=== PATIENT | female | born 1980 | race Caucasian/White ===

== ENCOUNTER → 2019-07-15 15:53 | Outpatient (BNVA) | payer OTHER, SELFPAY | PROVIDERS: Family Provider Nurse Practitioner; PCP Nurse Practitioner Family; Visit Provider Nurse Practitioner Psychiatric/Mental Health | DX: F33.1 Major depressive disorder, recurrent, moderate (principal); F41.0 Panic disorder [episodic paroxysmal anxiety]; F43.12 Post-traumatic stress disorder, chronic; F41.1 Generalized anxiety disorder; F17.210 Nicotine dependence, cigarettes, uncomplicated | CPT/HCPCS: 99214 ==

== ENCOUNTER → 2019-10-26 11:36 | Outpatient (BNVA) | payer OTHER, SELFPAY | PROVIDERS: Family Provider Nurse Practitioner; PCP Nurse Practitioner Family; Visit Provider Nurse Practitioner | DX: F41.1 Generalized anxiety disorder (principal); E55.9 Vitamin D deficiency, unspecified; M25.521 Pain in right elbow; F43.12 Post-traumatic stress disorder, chronic | CPT/HCPCS: 73080; 80053; 82306; 85025; 85651 ==

== ENCOUNTER → 2020-06-29 09:36 | Outpatient (BNVA) | payer OTHER, SELFPAY | PROVIDERS: Family Provider Nurse Practitioner; PCP Nurse Practitioner Family; Visit Provider Nurse Practitioner Psychiatric/Mental Health | DX: F33.1 Major depressive disorder, recurrent, moderate (principal); F41.0 Panic disorder [episodic paroxysmal anxiety]; F43.12 Post-traumatic stress disorder, chronic; F17.210 Nicotine dependence, cigarettes, uncomplicated; F41.1 Generalized anxiety disorder | CPT/HCPCS: 99214 ==

== ENCOUNTER → 2020-07-20 16:06 | Outpatient (BNVA) | payer SELFPAY | PROVIDERS: Family Provider Nurse Practitioner; PCP Nurse Practitioner Family; Visit Provider Nurse Practitioner Family | DX: M25.532 Pain in left wrist (principal); X58.XXXA Exposure to other specified factors, initial encounter; Z68.42 Body mass index [BMI] 45.0-49.9, adult; F17.210 Nicotine dependence, cigarettes, uncomplicated | CPT/HCPCS: 73110 ==

== ENCOUNTER → 2020-08-17 08:59 | Outpatient (BNVA) | payer SELFPAY | PROVIDERS: Family Provider Nurse Practitioner; PCP Nurse Practitioner; Visit Provider Nurse Practitioner Psychiatric/Mental Health | DX: F33.1 Major depressive disorder, recurrent, moderate (principal); F41.0 Panic disorder [episodic paroxysmal anxiety]; F43.12 Post-traumatic stress disorder, chronic; F41.1 Generalized anxiety disorder; F17.210 Nicotine dependence, cigarettes, uncomplicated | CPT/HCPCS: 99214 ==

== ENCOUNTER → 2020-09-14 15:26 | Outpatient (BNVA) | payer SELFPAY | PROVIDERS: Family Provider Nurse Practitioner; PCP Nurse Practitioner; Visit Provider Nurse Practitioner Family | DX: M54.9 Dorsalgia, unspecified (principal); G89.29 Other chronic pain; I49.3 Ventricular premature depolarization; E55.9 Vitamin D deficiency, unspecified; G43.909 Migraine, unspecified, not intractable, without status migrainosus; N39.3 Stress incontinence (female) (male) | CPT/HCPCS: 80053; 80061; 82306; 84443; 85025 ==

== ENCOUNTER → 2020-09-19 08:47 | Outpatient (BNVA) | payer SELFPAY | PROVIDERS: Family Provider Nurse Practitioner; PCP Nurse Practitioner; Referring Provider Nurse Practitioner Family; Visit Provider Orthopaedic Surgery | DX: M54.9 Dorsalgia, unspecified (principal); G89.29 Other chronic pain; K80.20 Calculus of gallbladder without cholecystitis without obstruction | CPT/HCPCS: 72070; 72072 ==

== ENCOUNTER 2020-10-02 16:47 | Outpatient (CLI) | payer SELFPAY ==
--- NOTE | 2020-10-02 16:45 | MR_ITS ---
WS: [id number] MRI LUMBAR SPINE NONCONTRAST TECHNIQUE: Sagittal T1, T2 and STIR imaging. Axial T1 and T2 imaging. CLINICAL INFORMATION: M48.061 - Spinal stenosis, lumbar region without neurogenic claudication COMPARISON: MRI October 2013 FINDINGS: Mild lumbar curve. No acute compression. No high-grade central canal stenosis. Mild disc bulging L5-S 1. L1-L2: Normal. L2-L3: No significant disc bulging. Mild facet arthropathy. Spinal canal and foramen are patent. L3-L4: Minimal annular bulging. Mild left and no significant right foraminal narrowing. Mild facet ar thropathy. Spinal canal is patent. L4-L5: Shallow central disc bulging with mild central canal stenosis. Narrowing of the subarticular r ecess bilaterally left greater than right. Mild left greater than right foraminal narrowing. Mild fac et arthropathy. L5-S1: Mild annular bulging with a tiny shallow central protrusion. Slight effacement of ventral thec al sac. Spinal canal and foramen are patent. Mild/moderate facet arthropathy. Visualized pelvic bony structures: Normal. Paravertebral soft tissues: Normal. MR/MR lumbar spine wo con* [id number] IMPRESSION: 1. Mild lumbar curve. No acute compression. No high-grade central canal stenos is. 2. Mild central canal stenosis L4-5 progressed since 2013 with slight impingem ent on the left greater than right subarticular recess and traversing L5 nerve roots. Mild left L4-5 foraminal narrowing. 3. Tiny shallow central protrusion L5-S1 without significant nerve root imping ement. Spinal canal and foramen are patent at this level. 4. Left eccentric disc bulging L3-4 with mild left foraminal narrowing. 5. Mild to moderate facet arthropathy L4-L5 and L5-S1.
--- NOTE | 2020-10-02 17:30 | MR_ITS ---
WS: [id number] MRI THORACIC SPINE WITHOUT CONTRAST TECHNIQUE: Sagittal T1, T2 and STIR imaging. Axial T2 imaging. Noncontrast imaging obtained. CLINICAL INFORMATION: M54.9 - Dorsalgia, unspecified COMPARISON: CT FINDINGS: Mild thoracic curve. No acute compression. No high-grade central canal stenosis. Cord signal is casper l. Moderate facet arthropathy in the lower thoracic spine. Mild bony foraminal narrowing right T10-11, bilateral T11-12. No significant disc protrusions or extr usions. Mild central canal stenosis in the lower cervical spine at C5-C7 seen on the gun welder imaging. N ormal caliber thoracic aorta. MR/MR thoracic spin wo con* [id number] IMPRESSION: 1. Mild thoracic curve. No acute compression. No high-grade central canal sten osis. 2. Cord signal is normal. 3. Moderate facet arthropathy lower thoracic spine. 4. Mild bony foraminal narrowing right T10-11 and bilateral T11-T12. 5. Mild central canal stenosis in the cervical spine C5-C7 with mild cervical disc bulging.
== END 2020-10-02 16:48 | disposition home or self-care (01) ==
LOC: RADSHAW 16:52
PROVIDERS: Family Provider Nurse Practitioner; PCP Nurse Practitioner; Visit Provider Orthopaedic Surgery
DX: M48.061 Spinal stenosis, lumbar region without neurogenic claudication (principal); M47.814 Spondylosis without myelopathy or radiculopathy, thoracic region; M48.02 Spinal stenosis, cervical region; M50.222 Other cervical disc displacement at C5-C6 level; M51.27 Other intervertebral disc displacement, lumbosacral region; M47.816 Spondylosis without myelopathy or radiculopathy, lumbar region; M47.817 Spondylosis without myelopathy or radiculopathy, lumbosacral region
CPT/HCPCS: 72146; 72148

== ENCOUNTER → 2020-12-27 10:14 | Outpatient (BNVA) | payer OTHER, SELFPAY | PROVIDERS: Family Provider Nurse Practitioner; PCP Nurse Practitioner | DX: Z20.822 Contact with and (suspected) exposure to COVID-19 (principal) | CPT/HCPCS: 87635 ==

== ENCOUNTER → 2021-02-15 10:54 | Outpatient (BNVA) | payer SELFPAY | PROVIDERS: Family Provider Nurse Practitioner; PCP Nurse Practitioner; Visit Provider Nurse Practitioner Family | DX: I49.3 Ventricular premature depolarization (principal); G43.909 Migraine, unspecified, not intractable, without status migrainosus; M54.9 Dorsalgia, unspecified; G89.29 Other chronic pain; Z68.43 Body mass index [BMI] 50.0-59.9, adult; R73.9 Hyperglycemia, unspecified; E55.9 Vitamin D deficiency, unspecified; R21 Rash and other nonspecific skin eruption; Z71.3 Dietary counseling and surveillance; Z71.6 Tobacco abuse counseling; M48.062 Spinal stenosis, lumbar region with neurogenic claudication | CPT/HCPCS: 80053; 80061; 82306; 82607; 83036; 84443; 85025 ==

== ENCOUNTER → 2021-08-15 10:40 | Outpatient (BNVA) | payer SELFPAY | PROVIDERS: Family Provider Nurse Practitioner; PCP Nurse Practitioner Family; Visit Provider Nurse Practitioner Family | DX: R53.83 Other fatigue (principal); E55.9 Vitamin D deficiency, unspecified; R73.9 Hyperglycemia, unspecified; I49.3 Ventricular premature depolarization | CPT/HCPCS: 80053; 80061; 82306; 82607; 83036; 83735; 84443; 85025 ==

== ENCOUNTER 2021-09-26 10:06 | Emergency (ER) | payer SELFPAY ==
[2021-09-26 10:10] VITALS: BP 150/92; PULSE 64; RESP 18; TEMP 36.1; O2SAT 97; BMI 49.8
--- NOTE | 2021-09-26 10:30 | ED_ITS ---
HPI - Wound/Laceration General: Chief Complaint: Wound/Laceration Stated Complaint: left finger lac Time Seen by Provider: 09/26/21 10:07 Source: patient Mode of arrival: ambulatory Limitations: no limitations History of Present Illness: Patient is a 41-year-old female presents to ED today for evaluation of a left index finger laceration that she sustained just prior to arrival after she was using a knife to cut ham in the kitchen. Last tetanus is unknown. Bleeding controlled currently. Onset (ago): hour(s) Extremity Location: Left: hand (L index finger) Place: home Patient tetanus UTD: No Context: accidental Associated symptoms: Reports no associated symptoms Review of Systems Musc: Reports: extremity pain (L index finger); Denies: extremity swelling, joint pain, joint swelling or limited range of motion Skin/Breast: Reports: other (finger laceration) Neuro: Denies: numbness in extremities or sensory changes [facility] ED PFSH: Medical History Chronic post-traumatic stress disorder Generalized anxiety disorder Insomnia Major depressive disorder, recurrent episode, moderate with anxious distress Migraine Nicotine dependence, cigarettes, uncomplicated Panic disorder without agoraphobia PVC (premature ventricular contraction) Vitamin D deficiency Surgical History History of section History of tonsillectomy Family History Other Cancer Heart disease Denies family history of Bleeding disorder Social History Smoking and tobacco status: current every day smoker cigarettes Packs smoked per day: 1 Quit status (tobacco): considering quitting Second hand smoke exposure: Yes Smoking risk assessment/counseling performed?: Yes Alcohol intake: never Desire information about alcohol rehabilitation?: No Counseling given: No Desire information about substance/drug rehabilitation?: No Counseling given: No Adopted: No Caregiver/support person: No Lives independently: Yes Household members: children Marital status: Single Number of children: 2 service: No Current occupational status: unemployed History of recent travel: No Current gender identity: Female Female Reproductive History: Spontaneous abortions: No Physical Exam Const: COMMON NORMALS: no acute distress, no limitations and alert Extremity: COMMON NORMALS: full ROM GENERAL: Yes normal exam except as noted LEFT UPPER EXTREMITY: Yes hand & digits OTHER: pt has a superficial 2cm laceration to the ulnar side of her proximal phalanx of her left index finger; full ROM against resistance in all gill; sensory intact Neuro: COMMON NORMALS: moves all extremities, no focal motor deficits and no sensory deficits noted SENSORIUM/ORIENTATION: Yes alert Procedures Laceration Laceration 1: Site: hand (L index finger) Side (If applicable): left Size (cm): 2.0 Description: linear Depth: simple, single layer Pre-repair: wound explored and irrigated extensively Skin layer closed with: other (skin adhesive/glue) Course Vital Signs: Vital signs: Vital Signs Temperature 97.0 F L 09/26/21 10:10 Pulse Rate 64 09/26/21 10:10 Respiratory Rate 18 09/26/21 10:10 Blood Pressure 150/92 09/26/21 10:10 Pulse Oximetry 97 09/26/21 10:10 MDM - Wound/Laceration Medical Decision Making Laceration was fairly superficial and wound edges approximate well. Laceration was easily closed with skin adhesive/glue. She maintains full range of motion in all gill against resistance sensory is intact. Will splint to keep her from bending finger and possibly disrupting repair. Return to ED precautions verbally given to patient who voiced understanding. Discharge Plan Discharge Patient Disposition: Home Clinical Impression: Laceration of left index finger Qualifiers: Encounter type: initial encounter Damage to nail status: without damage Foreign body presence: without foreign body Qualified Code(s): S61.211A - Laceration without foreign body of left index finger without damage to nail, initial encounter Condition: Stable Prescriptions: No Action eszopiclone [Lunesta] 1 mg tablet 1 mg PO BEDTIME PRN (Reason: insomnia) Qty: 30 1RF Rx Instructions: Take one tablet at bedtime as needed for sleep cefdinir 300 mg capsule 300 mg PO BID Qty: 20 0RF atenolol 25 mg tablet See Rx Instructions .ROUTE .COMPLEX Qty: 180 1RF Dose Instruction: Take 1 tablet by mouth twice daily Rx Instructions: Take 1 tablet by mouth twice daily topiramate [Topamax] 25 mg tablet 25 mg PO Q12H Qty: 180 1RF lorazepam [Ativan] 0.5 mg tablet 0.5 mg PO BID PRN (Reason: anxiety) Qty: 60 3RF Rx Instructions: Take one tablet twice per day as needed for anxiety cyclobenzaprine 10 mg tablet See Rx Instructions .ROUTE .COMPLEX Qty: 30 0RF Dose Instruction: Take 1 tablet by mouth three times daily as needed for muscle spasm Rx Instructions: Take 1 tablet by mouth three times daily as needed for muscle spasm fluoxetine [Prozac] 40 mg capsule 40 mg PO QAM Qty: 90 2RF Rx Instructions: Take one capsule every morning ergocalciferol (vitamin D2) 1,250 mcg (50,000 unit) capsule See Rx Instructions .ROUTE .COMPLEX Qty: 4 2RF Dose Instruction: TAKE 1 CAPSULE BY MOUTH ONCE A WEEK *PATIENT NEEDS LABS* Rx Instructions: TAKE 1 CAPSULE BY MOUTH ONCE A WEEK Discharge Orders: Discharge ED (Routine); Ordered 09/26/21 Ordered By: Hedy Conner Referrals: Abdon Balbuena, FLAKITA [Primary Care Provider] - Patient Instructions: Finger Laceration (ED), Skin Adhesive Care (ED) Activity Restrictions/Additional Instructions: Keep wound/laceration clean with warm soap and water twice daily. Monitor for signs of infection such as redness, swelling, increased pain, or drainage. Please seek medical re-evaluation if these occur. If your wound was closed with Steri-Strips or glue/adhesive these will fall off within the next week or so. 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
[2021-09-26] MEDS: tetanus-diphtheria tox (adult) 0.5 mL SDV IM (10:49)
[2021-09-26 10:53] VITALS: BP 130/83; PULSE 71; RESP 17; O2SAT 98
== END 2021-09-26 10:55 | disposition home or self-care (01) ==
PROVIDERS: Emergency Provider Physician Assistant; PCP Nurse Practitioner
DX: S61.221A Laceration with foreign body of left index finger without damage to nail, initial encounter (principal); W26.0XXA Contact with knife, initial encounter; Z23 Encounter for immunization; F17.210 Nicotine dependence, cigarettes, uncomplicated
CPT/HCPCS: 90471; 90714; 99283

== ENCOUNTER → 2022-05-21 17:15 | Outpatient (BNVA) | payer SELFPAY | PROVIDERS: PCP Nurse Practitioner Family; Visit Provider Nurse Practitioner Family | DX: R73.9 Hyperglycemia, unspecified (principal); E55.9 Vitamin D deficiency, unspecified; M79.605 Pain in left leg; Z12.4 Encounter for screening for malignant neoplasm of cervix; Z00.00 Encounter for general adult medical examination without abnormal findings; L05.01 Pilonidal cyst with abscess; I49.3 Ventricular premature depolarization | CPT/HCPCS: 80053; 80061; 82306; 83036; 84443; 85025; 87624 ==

== ENCOUNTER → 2022-09-11 16:45 | Outpatient (BNVA) | payer SELFPAY | PROVIDERS: PCP Nurse Practitioner Family; Visit Provider Nurse Practitioner Family | DX: E55.9 Vitamin D deficiency, unspecified (principal); I49.3 Ventricular premature depolarization; G43.909 Migraine, unspecified, not intractable, without status migrainosus; R07.9 Chest pain, unspecified; Z71.6 Tobacco abuse counseling; Z71.3 Dietary counseling and surveillance | CPT/HCPCS: 80053; 82306; 82607; 84443 ==

== ENCOUNTER 2023-08-08 16:33 | Emergency (ER) | payer SELFPAY ==
[2023-08-08 16:37] VITALS: BP 172/98; PULSE 77; RESP 16; TEMP 37.1; O2SAT 97
--- NOTE | 2023-08-08 16:53 | USR_ITS ---
PROCEDURE INFORMATION: Exam: US Pelvis, Transvaginal Exam date and time: 08/08/2023 6:05 PM Age: 42 years old Clinical indication: Other: Bleeding; Prior surgery; Surgery date: 6+ months; Surgery type: HX of 2 c sections; Additional info: Heavy/prolonged vaginal bleeding TECHNIQUE: Imaging protocol: Real-time transvaginal pelvic ultrasound with image documentation. Transvaginal imaging was used for better evaluation of the endometrium, adnexa, and/or cervix. COMPARISON: MR lumbar spine wo con* [id number] 10/02/2020 5:07 PM FINDINGS: Uterus: The uterus is normal and measures 9.0 x 5.1 x 5.6 cm. The endometrium is within normal limits measuring 11 mm. Cervix: Complex nabothian cysts are incidentally noted. Right ovary/adnexa: Normal follicles are seen in the right ovary. There is normal flow in the right ovary. The right ovary is normal and measures 0.9 x 0.7 x 1.0. Left ovary/adnexa: The left ovary is not visualized. Intraperitoneal space: Trace pelvic free fluid, likely physiologic. US/US transvaginal [id number] IMPRESSION: 1. Nonvisualization of the left ovary. 2. Otherwise unremarkable pelvic ultrasound.
--- NOTE | 2023-08-08 16:53 | W.ED.FEMALGU ---
Documented by User: JOHN Donovan 08/08/23 16:58 HPI - Female Genitourinary General: Chief complaint: Vaginal Bleeding Stated complaint: Vaginal Bleeding Time Seen by Provider: 08/08/23 16:36 Source: patient Mode of arrival: ambulatory Limitations: no limitations History of Present Illness: Patient is a 42-year-old female presents to ED today with a complaint of heavy and prolonged vaginal bleeding. Patient states over the past year or so she has had inconsistent menstrual cycles. She states she will bleed for approximately 2 weeks and then go several months without a cycle. Patient states her mother and grandmother went through menopause around the ages of 36-40 and just figured she was going through the change . She states since May she has had intermittent and prolonged vaginal bleeding. She became concerned over the past several days when bleeding has become significantly more heavy to where she is soaking an adult brief at night and feels gushes of blood at times. She has not had any syncopal episodes. She arrives to the ED today with stable vital signs. PMH significant for tachycardia with PVCs in which she treats with atenolol. MD elicited complaint: vaginal bleeding Onset (ago): month(s) Quality of pain: cramping Consistency: intermittent Vaginal discharge: none Vaginal bleeding: heavy Exacerbating factors: none Relieving factors: none Associated symptoms: Reports no associated symptoms; Deny abdominal pain or vaginal discharge Treatment prior to arrival: none Patient : No Review of Systems Const: Denies: fever(s), chills, body aches, fatigue or malaise Card: Denies: chest pain Resp: Denies: dyspnea GI: Reports: GI cramping; Denies: abdominal pain, diarrhea, hematochezia or melena : Reports: vaginal bleeding, irregular period, metrorrhagia, change in menstrual flow and pelvic pain; Denies: flank pain, difficulty voiding, dysuria, urinary frequency, urinary urgency, urinary hesitancy, hematuria, vaginal odor or vaginal discharge Musc: Denies: neck pain, back pain, extremity pain, extremity swelling or joint pain Skin/Breast: Denies: rash [facility] ED PFSH: Medical History Attention deficit hyperactivity disorder (ADHD), combined type, moderate Insomnia Vitamin D deficiency PVC (premature ventricular contraction) Migraine Nicotine dependence, cigarettes, uncomplicated Generalized anxiety disorder Chronic post-traumatic stress disorder Major depressive disorder, recurrent episode, moderate with anxious distress Surgical History History of tonsillectomy History of section Family History Other Cancer Heart disease Denies family history of Bleeding disorder Social History Smoking and tobacco/nicotine status: current every day tobacco/nicotine user cigarettes Packs smoked per day: 1 Quit status (tobacco/nicotine): considering quitting Second hand smoke exposure: Yes Alcohol intake: never Substance/Drug Use: unknown Adopted: No Caregiver/support person: No Lives independently: Yes Household members: children Marital status: Single Number of children: 2 service: No Current occupational status: unemployed Do you think of yourself as: Straight/Heterosexual Current gender identity: Female Female Reproductive History: Spontaneous abortions: No Physical Exam Const: COMMON NORMALS: no acute distress, patient oriented x3, no limitations, alert and well nourished GENERAL APPEARANCE: cooperative NUTRITIONAL APPEARANCE: obese morbidly obese (BMI of 51.5) Resp: COMMON NORMALS: normal respiratory effort and clear to auscultation bilaterally AUSCULTATION: clear to auscultation bilaterally Cardio: COMMON NORMALS: regular rate and regular rhythm RATE: regular rate RHYTHM: regular rhythm GI: COMMON NORMALS: Normal to inspection, nondistended, normoactive bowel sounds present, Soft to palpation, non-tender, No hepatosplenomegaly present and no masses PALPATION: Yes Soft to palpation and Yes No hepatosplenomegaly present Extremity: GENERAL: Yes normal exam except as noted Neuro: COMMON NORMALS: patient oriented x3 SENSORIUM/ORIENTATION: Yes alert Skin: COMMON NORMALS: no rashes or lesions noted GENERAL SKIN EXAM: no rashes or lesions noted Course Vital Signs: Vital signs: Vital Signs Temperature 98.8 F 08/08/23 16:37 Pulse Rate 66 08/08/23 18:48 Respiratory Rate 16 08/08/23 16:37 Blood Pressure 137/80 08/08/23 18:48 Pulse Oximetry 96 08/08/23 18:44 Oxygen Delivery Me thod Room Air 08/08/23 18:44 MDM - Female Lab Data 08/08/23 17:22 08/08/23 17:22 Radiology Impressions Transvaginal US 08/08/23 16:53 IMPRESSION: 1. Nonvisualization of the left ovary. 2. Otherwise unremarkable pelvic ultrasound. Laboratory Results WBC 7.67 10^3/uL (3.29-11.43) 08/08/23 17:22 RBC 3.69 10^6/uL (3.85-5.65) L 08/08/23 17:22 Hgb 11.00 g/dL (11.27-16.99) L 08/08/23 17:22 Hct 32.9 % (36-47) L 08/08/23 17:22 MCV 89.2 fl (85-98) 08/08/23 17:22 MCH 29.8 pg (27-33) 08/08/23 17:22 MCHC 33.4 g/dL (30-55) 08/08/23 17:22 RDW 12.4 % (12.1-15.1) 08/08/23 17:22 Plt Count 260 10^3/cmm (157-399) 08/08/23 17:22 MPV 9.3 fL (7.4-10.4) 08/08/23 17:22 Neut % (Auto) 64.4 % 08/08/23 17:22 Lymph % (Auto) 28.0 % 08/08/23 17:22 [place] % (Auto) 5.6 % 08/08/23 17:22 Eos % (Auto) 1.3 % 08/08/23 17:22 Baso % (Auto) 0.3 % 08/08/23 17:22 Neut # (Auto) 4.94 10^3/uL (1.8-7.7) 08/08/23 17:22 Lymph # (Auto) 2.2 10^3/uL (0.8-4.8) 08/08/23 17:22 [place] # (Auto) 0.4 10^3/uL (0.2-0.9) 08/08/23 17:22 Eos # (Auto) 0.1 10^3/uL (0.0-0.8) 08/08/23 17:22 Baso # (Auto) 0.0 10^3/uL (0.0-0.1) 08/08/23 17:22 Nucleated RBC % (auto) 0 % 08/08/23 17:22 Nucleated RBCs # 0.0 /100WBC 08/08/23 17:22 Sodium 136 mmol/L (136-145) 08/08/23 17:22 Potassium 4.2 mmol/L (3.5-5.1) 08/08/23 17:22 Chloride 101 mmol/L (98-107) 08/08/23 17:22 Carbon Dioxide 23 mmol/L (22-29) 08/08/23 17:22 Anion Gap 16.2 (5-19) 08/08/23 17:22 BUN 9 mg/dL (6-20) 08/08/23 17:22 Creatinine 0.8 mg/dL (0.5-0.9) 08/08/23 17:22 GFR Calculation 79.4 mL/min (90-130) L 08/08/23 17:22 Glucose 106 mg/dL (65-115) 08/08/23 17:22 Calculated Osmolality 281 mOsm/kg (285-295) L 08/08/23 17:22 Calcium 9.0 mg/dL (8.5-10.5) 08/08/23 17:22 Total Bilirubin 0.2 mg/dL (0.15-1.2) 08/08/23 17:22 AST 15 U/L (0-32) 08/08/23 17:22 ALT 14 U/L (0-33) 08/08/23 17:22 Alkaline Phosphatase 87 U/L (35-105) 08/08/23 17:22 Total Protein 7.2 g/dL (6.6-8.7) 08/08/23 17:22 Albumin 4.2 g/dL (3.5-5.2) 08/08/23 17:22 Globulin 3.0 g/dL (1.3-4.6) 08/08/23 17:22 HCG, Qual Negative (Negative) 08/08/23 17:22 Urine Color Leah (Yellow) 08/08/23 17:36 Urine Appearance Cloudy (CLEAR) A 08/08/23 17:36 Urine pH 5 (5-7) 08/08/23 17:36 Ur Specific [place] 1.020 (1.005-1.030) 08/08/23 17:36 Urine Protein 2+ (Negative) H 08/08/23 17:36 Urine Glucose (UA) Norm (Normal) 08/08/23 17:36 Urine Ketones 1+ (Negative) H 08/08/23 17:36 Urine Blood 3+ (Negative) H 08/08/23 17:36 Urine Nitrate Positive (Negative) H 08/08/23 17:36 Urine Bilirubin Neg (Negative) 08/08/23 17:36 Urine Urobilinogen Norm mg/dL (Negative) 08/08/23 17:36 Ur Leukocyte Esterase 1+ (Negative) H 08/08/23 17:36 Urine RBC Too numerous to cnt /hpf (0-2) H 08/08/23 17:36 Urine WBC 0-4 /hpf (0-5) H 08/08/23 17:36 Ur Squamous Epith Cells 0-4 /hpf (0-5) H 08/08/23 17:36 Amorphous Sediment Not Reportable 08/08/23 17:36 Urine Bacteria Trace /hpf (NONE) 08/08/23 17:36 Discharge Plan Discharge Patient Disposition: Home Clinical Impression: Abnormal vaginal bleeding, UTI (urinary tract infection) Condition: Stable Prescriptions: New cefdinir 300 mg capsule 300 mg PO BID 7 Days Qty: 14 0RF No Action duloxetine [Cymbalta] 60 mg capsule,delayed release(DR/EC) 60 mg PO .morning Qty: 30 6RF Rx Instructions: Take one capsule every morning calcium carbonate [Tums] 200 mg calcium (500 mg) tablet,chewable 200 mg PO BID topiramate [Topamax] 25 mg tablet 25 mg PO Q12H Qty: 180 1RF Contrave 8-90 mg tablet extended release 2 tab PO BID Qty: 120 0RF Rx Instructions: Week 1: 1 tab AM Week 2: 1 tab BID Week 3: 2 tab AM 1 tab PM Week 4: 2 tab BID lorazepam [Ativan] 0.5 mg tablet 0.5 mg PO BID PRN (Reason: anxiety) Qty: 60 1RF Rx Instructions: Take one tablet twice per day as needed for anxiety ergocalciferol (vitamin D2) 1,250 mcg (50,000 unit) capsule See Rx Instructions .ROUTE .COMPLEX Qty: 12 1RF Dose Instruction: TAKE 1 CAPSULE BY MOUTH ONCE A WEEK *PATIENT NEEDS LABS* Rx Instructions: TAKE 1 CAPSULE BY MOUTH ONCE A WEEK atenolol 25 mg tablet See Rx Instructions .ROUTE .COMPLEX Qty: 60 2RF Dose Instruction: Take 1 tablet by mouth twice daily Rx Instructions: Take 1 tablet by mouth twice daily Discharge Orders: Discharge ED (Routine); Ordered 08/08/23 Ordered By: Wilian Jenkins Referrals: Pérez Goodwin MD [Physician] - Reva Soto FNP [Primary Care Provider] - Patient Instructions: Urinary Tract Infection in Women (ED) Activity Restrictions/Additional Instructions: Increase oral hydration. See handout over generalize instructions. A prescription of cefdinir was sent to your pharmacy to be picked up. Take medication as prescribed. A referral was sent to the [facility]. Number provided in discharge paperwork, call tomorrow to schedule appointment for further management/evaluation. Return to the emergency department for any rapid or worsening symptoms to include but not limited to worsening bleeding, worsening abdominal pain, lightheadedness, dizziness, nausea, vomiting, fever, or as needed. Sign Out Sign Out Data: Patient Sign Out occurred on 08/08/23 at 17:02. Patient's care was discussed, and care was transferred from JOHN Donovan to JOHN Frost. Coding Level of Care Code ED Shearing Shed Hand for Chg Fwd Documented by User: JOHN Frost 08/08/23 19:10 HPI - Female Genitourinary General: Chief complaint: Vaginal Bleeding Stated complaint: Vaginal Bleeding Time Seen by Provider: 08/08/23 16:36 [facility] ED PFSH: Medical History Attention deficit hyperactivity disorder (ADHD), combined type, moderate Insomnia Vitamin D deficiency PVC (premature ventricular contraction) Migraine Nicotine dependence, cigarettes, uncomplicated Generalized anxiety disorder Chronic post-traumatic stress disorder Major depressive disorder, recurrent episode, moderate with anxious distress Surgical History History of tonsillectomy History of section Family History Other Cancer Heart disease Denies family history of Bleeding disorder Social History Smoking and tobacco/nicotine status: current every day tobacco/nicotine user cigarettes Packs smoked per day: 1 Quit status (tobacco/nicotine): considering quitting Second hand smoke exposure: Yes Alcohol intake: never Substance/Drug Use: unknown Adopted: No Caregiver/support person: No Lives independently: Yes Household members: children Marital status: Single Number of children: 2 service: No Current occupational status: unemployed Do you think of yourself as: Straight/Heterosexual Current gender identity: Female Course Vital Signs: Vital signs: Vital Signs Temperature 98.8 F 08/08/23 16:37 Pulse Rate 66 08/08/23 18:48 Respiratory Rate 16 08/08/23 16:37 Blood Pressure 137/80 08/08/23 18:48 Pulse Oximetry 96 08/08/23 18:44 Oxygen Delivery Me thod Room Air 08/08/23 18:44 MDM - Female Medical Decision Making This patient was passed over to me to me by Hedy Conner PA-C. Patient is a 42-year-old female presents to ED today with a complaint of heavy and prolonged vaginal bleeding. On physical examination patient is nontoxic and in no acute distress. Vital signs remained stable throughout the ED course. Patient is hemodynamically stable. CBC showed a hemoglobin of 11. No leukocytosis noted. CMP and hCG qualitative unremarkable. Urinalysis showed a nitrite positive urinary tract infection. Urine culture currently pending. Pelvic ultrasound showed nonvisualization of the left ovary. Otherwise unremarkable pelvic ultrasound. Patient has no left lower quadrant abdominal tenderness noted to palpation. I do not think left-sided ovarian torsion is likely at this time. Based off history and physical examination I do not believe the patient symptoms are emergent and warrant further emergent evaluation at this time. Patient thinks that her symptoms could be related to menopause. I will refer to [facility]OGY [facility] and have the patient follow-up with her primary care provider for further management/evaluation. Patient was given strict return precautions. Patient stated understanding of all discharge instructions was agreeable to the plan of care. I discussed patient's history, exam, and all findings with Dr. Ndiaye in the emergency department who agreed my assessment and plan. He did not feel the patient required admission or further evaluation at this time. Differential diagnosis includes but is not limited to dysmenorrhea, menopause, uterine fibroids, ectopic , urinary tract infection Lab Data 08/08/23 17:22 08/08/23 17:22 Radiology Impressions Transvaginal US 08/08/23 16:53 IMPRESSION: 1. Nonvisualization of the left ovary. 2. Otherwise unremarkable pelvic ultrasound. Laboratory Results WBC 7.67 10^3/uL (3.29-11.43) 08/08/23 17:22 RBC 3.69 10^6/uL (3.85-5.65) L 08/08/23 17:22 Hgb 11.00 g/dL (11.27-16.99) L 08/08/23 17:22 Hct 32.9 % (36-47) L 08/08/23 17:22 MCV 89.2 fl (85-98) 08/08/23 17:22 MCH 29.8 pg (27-33) 08/08/23 17:22 MCHC 33.4 g/dL (30-55) 08/08/23 17:22 RDW 12.4 % (12.1-15.1) 08/08/23 17:22 Plt Count 260 10^3/cmm (157-399) 08/08/23 17:22 MPV 9.3 fL (7.4-10.4) 08/08/23 17:22 Neut % (Auto) 64.4 % 08/08/23 17:22 Lymph % (Auto) 28.0 % 08/08/23 17:22 [place] % (Auto) 5.6 % 08/08/23 17:22 Eos % (Auto) 1.3 % 08/08/23 17:22 Baso % (Auto) 0.3 % 08/08/23 17:22 Neut # (Auto) 4.94 10^3/uL (1.8-7.7) 08/08/23 17:22 Lymph # (Auto) 2.2 10^3/uL (0.8-4.8) 08/08/23 17:22 [place] # (Auto) 0.4 10^3/uL (0.2-0.9) 08/08/23 17:22 Eos # (Auto) 0.1 10^3/uL (0.0-0.8) 08/08/23 17:22 Baso # (Auto) 0.0 10^3/uL (0.0-0.1) 08/08/23 17:22 Nucleated RBC % (auto) 0 % 08/08/23 17:22 Nucleated RBCs # 0.0 /100WBC 08/08/23 17:22 Sodium 136 mmol/L (136-145) 08/08/23 17:22 Potassium 4.2 mmol/L (3.5-5.1) 08/08/23 17:22 Chloride 101 mmol/L (98-107) 08/08/23 17:22 Carbon Dioxide 23 mmol/L (22-29) 08/08/23 17:22 Anion Gap 16.2 (5-19) 08/08/23 17:22 BUN 9 mg/dL (6-20) 08/08/23 17:22 Creatinine 0.8 mg/dL (0.5-0.9) 08/08/23 17:22 GFR Calculation 79.4 mL/min (90-130) L 08/08/23 17:22 Glucose 106 mg/dL (65-115) 08/08/23 17:22 Calculated Osmolality 281 mOsm/kg (285-295) L 08/08/23 17:22 Calcium 9.0 mg/dL (8.5-10.5) 08/08/23 17:22 Total Bilirubin 0.2 mg/dL (0.15-1.2) 08/08/23 17:22 AST 15 U/L (0-32) 08/08/23 17:22 ALT 14 U/L (0-33) 08/08/23 17:22 Alkaline Phosphatase 87 U/L (35-105) 08/08/23 17:22 Total Protein 7.2 g/dL (6.6-8.7) 08/08/23 17:22 Albumin 4.2 g/dL (3.5-5.2) 08/08/23 17:22 Globulin 3.0 g/dL (1.3-4.6) 08/08/23 17:22 HCG, Qual Negative (Negative) 02/23/24 17:22 Urine Color Leah (Yellow) 08/08/23 17:36 Urine Appearance Cloudy (CLEAR) A 08/08/23 17:36 Urine pH 5 (5-7) 08/08/23 17:36 Ur Specific [place] 1.020 (1.005-1.030) 08/08/23 17:36 Urine Protein 2+ (Negative) H 08/08/23 17:36 Urine Glucose (UA) Norm (Normal) 08/08/23 17:36 Urine Ketones 1+ (Negative) H 08/08/23 17:36 Urine Blood 3+ (Negative) H 08/08/23 17:36 Urine Nitrate Positive (Negative) H 08/08/23 17:36 Urine Bilirubin Neg (Negative) 08/08/23 17:36 Urine Urobilinogen Norm mg/dL (Negative) 08/08/23 17:36 Ur Leukocyte Esterase 1+ (Negative) H 08/08/23 17:36 Urine RBC Too numerous to cnt /hpf (0-2) H 08/08/23 17:36 Urine WBC 0-4 /hpf (0-5) H 08/08/23 17:36 Ur Squamous Epith Cells 0-4 /hpf (0-5) H 08/08/23 17:36 Amorphous Sediment Not Reportable 08/08/23 17:36 Urine Bacteria Trace /hpf (NONE) 08/08/23 17:36 All radiology interpretation(s) finalized by discharge Discharge Plan Discharge Patient Disposition: Home Clinical Impression: Abnormal vaginal bleeding, UTI (urinary tract infection) Condition: Stable Prescriptions: New cefdinir 300 mg capsule 300 mg PO BID 7 Days Qty: 14 0RF No Action duloxetine [Cymbalta] 60 mg capsule,delayed release(DR/EC) 60 mg PO .morning Qty: 30 6RF Rx Instructions: Take one capsule every morning calcium carbonate [Tums] 200 mg calcium (500 mg) tablet,chewable 200 mg PO BID topiramate [Topamax] 25 mg tablet 25 mg PO Q12H Qty: 180 1RF Contrave 8-90 mg tablet extended release 2 tab PO BID Qty: 120 0RF Rx Instructions: Week 1: 1 tab AM Week 2: 1 tab BID Week 3: 2 tab AM 1 tab PM Week 4: 2 tab BID lorazepam [Ativan] 0.5 mg tablet 0.5 mg PO BID PRN (Reason: anxiety) Qty: 60 1RF Rx Instructions: Take one tablet twice per day as needed for anxiety ergocalciferol (vitamin D2) 1,250 mcg (50,000 unit) capsule See Rx Instructions .ROUTE .COMPLEX Qty: 12 1RF Dose Instruction: TAKE 1 CAPSULE BY MOUTH ONCE A WEEK *PATIENT NEEDS LABS* Rx Instructions: TAKE 1 CAPSULE BY MOUTH ONCE A WEEK atenolol 25 mg tablet See Rx Instructions .ROUTE .COMPLEX Qty: 60 2RF Dose Instruction: Take 1 tablet by mouth twice daily Rx Instructions: Take 1 tablet by mouth twice daily Discharge Orders: Discharge ED (Routine); Ordered 08/08/23 Ordered By: Wilian Jenkins Referrals: Pérez Goodwin MD [Physician] - Reva Soto FNP [Primary Care Provider] - Patient Instructions: Urinary Tract Infection in Women (ED) Activity Restrictions/Additional Instructions: Increase oral hydration. See handout over generalize instructions. A prescription of cefdinir was sent to your pharmacy to be picked up. Take medication as prescribed. A referral was sent to the [facility]COLOG[facility] CONSULT[facility]. Number provided in discharge paperwork, call tomorrow to schedule appointment for further management/evaluation. Return to the emergency department for any rapid or worsening symptoms to include but not limited to worsening bleeding, worsening abdominal pain, lightheadedness, dizziness, nausea, vomiting, fever, or as needed. Sign Out Sign Out Data: Patient Sign Out occurred on 08/08/23 at 17:02. Patient's care was discussed, and care was transferred from JOHN Donovan to JOHN Frost. Coding Level of Care Code ED Shearing Shed Hand for Destiney Pacheco
--- NOTE | 2023-08-08 17:13 | DCPLANNER ---
Message was sent to [facility] on 08/08/23 at 1713 for heavy vaginal bleeding. Clinic to contact patient
[2023-08-08 17:32] LABS: Basophils % 0.3 %; Eosinophils # 0.1 10^3/uL (0.0-0.8); Eosinophils % 1.3 %; Hematocrit 32.9 % (36-47); Lymphocytes # 2.2 10^3/uL (0.8-4.8); Mean Corpuscular HGB Conc 33.4 g/dL (30-55); Mean Corpuscular Hemoglobin 29.8 pg (27-33); Mean Corpuscular Volume 89.2 fl (85-98); Mean Platelet Volume 9.3 fL (7.4-10.4); Monocytes # 0.4 10^3/uL (0.2-0.9); Monocytes % 5.6 %; Neutrophils # 4.94 10^3/uL (1.8-7.7); Neutrophils % 64.4 %; Nucleated Red Blood Cells % 0 %; Platelet Count 260 10^3/cmm (157-399); Red Blood Count 3.69 10^6/uL (3.85-5.65); Red Cell Distribution Width 12.4 % (12.1-15.1); White Blood Count 7.67 10^3/uL (3.29-11.43)
[2023-08-08 17:48] LABS: Alanine Aminotransferase 14 U/L (0-33); Albumin Level 4.2 g/dL (3.5-5.2); Alkaline Phosphatase 87 U/L (35-105); Anion Gap 16.2 (5-19); Aspartate Amino Transferase 15 U/L (0-32); Blood Urea Nitrogen 9 mg/dL (6-20); Carbon Dioxide 23 mmol/L (22-29); Chloride 101 mmol/L (98-107); Creatinine Clr Calc Pharmacy 128.7561; Glomerular Filtration Rate 79.4 mL/min (90-130); Glucose 106 mg/dL (65-115); Osmolality Calculated 281 mOsm/kg (285-295); Potassium 4.2 mmol/L (3.5-5.1); Sodium 136 mmol/L (136-145); Total Bilirubin 0.2 mg/dL (0.15-1.2); Total Protein 7.2 g/dL (6.6-8.7)
[2023-08-08 17:50] LABS: HCG, Serum Qual Negative (Negative)
[2023-08-08 17:53] LABS: Add Urine Culture? Yes; Add Urine Microscopic? YES; Bacteria Urine TRACE /hpf; Bilirubin Urine Neg (Negative); Blood Urine 3+ (Negative); Glucose Urine UA Norm (Normal); Ketones Urine 1+ (Negative); Leukocyte Esterase Urine 1+ (Negative); Nitrate Urine Positive (Negative); Protein Urine 2+ (Negative); RBC Urine TOO NUMEROUS TO CNT /hpf (0-2); Squamous Epithelial Cell Urine 0-4 /hpf (0-5); Urine Appearance Cloudy (CLEAR); Urine Color Amber (Yellow); Urobilinogen Urine Norm (Negative); WBC Urine 0-4 /hpf (0-5); pH Urine 5 (5-7)
[2023-08-08 18:44] VITALS: BP 134/90; PULSE 91; O2SAT 96
[2023-08-08 18:48] VITALS: BP 130/81; BP 134/90; BP 137/80; PULSE 64; PULSE 66; PULSE 73
[2023-08-08] MEDS: cefTRIAXone 1,000 MG in water for injection-sterile 2.1 ML 2.1 MG IM (19:10)
== END 2023-08-08 19:15 | disposition home or self-care (01) ==
PROVIDERS: Emergency Medicine; Emergency Provider Physician Assistant; PCP Nurse Practitioner Family
DX: N93.9 Abnormal uterine and vaginal bleeding, unspecified (principal); N39.0 Urinary tract infection, site not specified; F17.210 Nicotine dependence, cigarettes, uncomplicated
CPT/HCPCS: 36415; 76830; 80053; 81001; 84703; 85025; 87086; 96372; J0696

== ENCOUNTER → 2023-10-07 14:53 | Outpatient (BNVA) | payer SELFPAY | PROVIDERS: PCP Nurse Practitioner Family; Visit Provider Nurse Practitioner Family | DX: I49.3 Ventricular premature depolarization (principal); E55.9 Vitamin D deficiency, unspecified; R73.9 Hyperglycemia, unspecified | CPT/HCPCS: 80053; 80061; 82306; 83036; 83880; 84443; 85025 ==

== ENCOUNTER → 2024-08-27 09:33 | Outpatient (BNVA) | payer BC, SELFPAY | PROVIDERS: PCP Nurse Practitioner Family; Visit Provider Nurse Practitioner Family | DX: R73.9 Hyperglycemia, unspecified (principal); I10 Essential (primary) hypertension | CPT/HCPCS: 80053; 80061; 82306; 82607; 83036; 83735; 84443; 85025 ==

== ENCOUNTER 2024-09-30 08:45 | Outpatient (CLI) | payer BC, MEDICAID, SELFPAY ==
--- NOTE | 2024-09-30 08:47 | XR_ITS ---
WS: [email or web address] Right knee, 3 views, 09/30/2024 Clinical Data: M25.561 - Pain in right knee Comparison: None. Findings: No fractures or dislocations are seen. The joint spaces are normal. There is a small medial femoral condyle spur. There is irregularity of the anterior right patella along with 2 small posterior spurs. The soft tissues are unremarkable. XR/XR knee RT 3V* [id number] Impression: Mild osteoarthritis of the right knee.
--- NOTE | 2024-09-30 08:47 | XR_ITS ---
WS: [id number] Thoracic spine, 3 views, 09/30/2024 Clinical Data: M54.6 - Pain in thoracic spine Comparison: Thoracic spine, 09/19/2020 Findings: No compression fractures are seen. The disc heights are normal. There are small spurs of the mid thoracic vertebral bodies. The paravertebral regions are unremarkable. XR/XR thoracic spine 3V* [id number] Impression: Minimal osteoarthritis of the midthoracic vertebral bodies.
--- NOTE | 2024-09-30 08:47 | XR_ITS ---
WS: [email or web address] Lumbar spine, AP and lateral views, 09/30/2024 Clinical Data: M48.062 - Spinal stenosis, lumbar region with neurogenic ... Comparison: Lumbar spine, 07/04/2014 Findings: No compression fractures or subluxation is seen. No disc space narrowing is seen. The transverse processes and SI joints are normal. There is a probable gallstone in the right upper quadrant. XR/XR lumbar spine 2-3V* [id number] Impression: Negative lumbar spine.
== END 2024-09-30 08:46 | disposition home or self-care (01) ==
LOC: RAD 08:47
PROVIDERS: PCP Nurse Practitioner Family; Visit Provider Nurse Practitioner Family
DX: M48.062 Spinal stenosis, lumbar region with neurogenic claudication (principal); M54.6 Pain in thoracic spine; M17.11 Unilateral primary osteoarthritis, right knee; R93.5 Abnormal findings on diagnostic imaging of other abdominal regions, including retroperitoneum; R93.6 Abnormal findings on diagnostic imaging of limbs; M76.9 Unspecified enthesopathy, lower limb, excluding foot
CPT/HCPCS: 72072; 72100; 73562

== ENCOUNTER → 2024-11-12 18:14 | Outpatient (BNVA) | payer BC, SELFPAY | PROVIDERS: PCP Nurse Practitioner Family; Visit Provider Emergency Medicine | DX: R52 Pain, unspecified (principal) | CPT/HCPCS: 73562 ==

== ENCOUNTER → 2024-12-24 14:34 | Outpatient (BNVA) | payer BC, MEDICAID, SELFPAY | PROVIDERS: PCP Nurse Practitioner Family; Visit Provider Nurse Practitioner Family | DX: J06.9 Acute upper respiratory infection, unspecified (principal) | CPT/HCPCS: 87426 ==

== ENCOUNTER → 2024-12-28 09:17 | Outpatient (BNVA) | payer BC, MEDICAID, SELFPAY | PROVIDERS: PCP Nurse Practitioner Family; Visit Provider Nurse Practitioner Family | DX: M79.605 Pain in left leg (principal); N91.2 Amenorrhea, unspecified; I10 Essential (primary) hypertension; R73.9 Hyperglycemia, unspecified | CPT/HCPCS: 73590; 80053; 80061; 81025; 82306; 82607; 82728; 83001; 83036; 83735; 84443; 85025; 85651; 86140 ==